=== PATIENT | male | born 1990 | race Two or more races ===

== ENCOUNTER → 2021-11-03 08:00 | Outpatient (CLI) | payer OTHER ==
[~2021-11-03] VITALS: Ht 188 cm; Wt 117.0 kg
[~2021-11-03 08:00] MED LIST: AMOX1TAB5 PO; MOTRIN IB200 M1 PO
== END | disposition home or self-care (01) ==
LOC: ADM 07:30 → LAB 08:00 → EDSTATUS 11-08 07:30 → CIR.AMB 11-08 07:30
PROVIDERS: ATTEND Urology
DX: N47.1 Phimosis (principal)